=== PATIENT | female | born 1965 | race Native Hawaiian/Other Pacific Islander ===

== ENCOUNTER 2020-08-30 11:03 | Outpatient (CLI) | payer BC, OTHER | END 2020-08-30 23:59 | disposition home or self-care (01) | LOC: INF 11:03 | PROVIDERS: ATTEND Internal Medicine | DX: Z23 Encounter for immunization (principal) | CPT/HCPCS: 96372 ==

== ENCOUNTER 2020-09-27 10:37 | Outpatient (CLI) | payer BC, OTHER | END 2020-09-27 21:53 | disposition home or self-care (01) | LOC: INF 10:37 | PROVIDERS: ATTEND Internal Medicine | DX: Z23 Encounter for immunization (principal) | CPT/HCPCS: 96372 ==